=== PATIENT | male | born 1960 | race Caucasian/White ===

== ENCOUNTER 2019-11-08 04:03 | Emergency (ER) | payer OTHER, SELFPAY ==
--- NOTE | ~2019-11-08 | XR_ITS ---
EXAMINATION: XR shoulder RT min 2V DATE: 11/08/2019 04:39 INDICATION: Right shoulder pain. Fall. TECHNIQUE: 4 views of right shoulder were obtained. COMPARISON: None. FINDINGS: Bone alignment is normal. No fracture. There is mild osteoarthritis of glenohumeral joint a nd acromioclavicular joint. There is a 5 mm loose body in the axillary recess. There is mild calcific tendinitis of the rotator cuff. IMPRESSION: 1. Mild polyarticular osteoarthritis. 2. Loose body in the glenohumeral joint. 3. Mild calcific tendinitis of the rotator cuff. Reviewed, dictated and finalized at location A. [employer]
[2019-11-08 04:15] VITALS: BP 166/94; PULSE 81; RESP 20; TEMP 36.6; O2SAT 98
--- NOTE | 2019-11-08 04:19 | ED.UPPEXIN ---
HPI - Extremity Injury (Upper) General Chief Complaint: Extremity Injury, Upper Stated Complaint: Right shoulder Injury Time Seen by Provider: 11/08/19 04:19 Source: patient Mode of arrival: ambulatory Limitations: no limitations History of Present Illness HPI narrative: 58-year-old man who has a history of a prior right rotator cuff repair comes in today complaining of right shoulder pain and inability to raise his right arm after he fell in the door this morning and injured his shoulder. He denies any numbness, tingling or weakness. He is concerned about a clavicle fracture. He took some of his 's Vicodin prior to arrival. complaint: injury to: right and shoulder Other injuries: none Place: home Severity: moderate Relieving factors: immobilization Exacerbating factors: movement of extremity Context: fall Associated symptoms: denies other symptoms Treatments prior to arrival: other ( Vicodin) Related Data Allergies Allergy/AdvReac Type Severity Reaction Status Date / Time No Known Allergies Allergy Verified 11/08/19 04:13 Review of Systems Constitutional: Constitutional: Denies chills, Denies fever(s) and Denies weakness Eyes: Eyes: Denies change in vision and Denies photophobia ENT: Denies dysphagia, Denies nasal congestion and Denies sore throat Cardiovascular: Cardiovascular: Denies chest pain and Denies radiating jaw, neck or arm pain Respiratory: Respiratory: Denies cough, Denies dyspnea and Denies wheezing Gastrointestinal: Gastrointestinal: Denies abdominal pain, Denies nausea and Denies vomiting Musculoskeletal: Musculoskeletal: Reports as per HPI, Denies myalgias, Reports arthralgias, Reports joint swelling and Denies muscle cramps Integumentary/Breasts: Skin/Breast: Denies pruritus, Denies erythema and Denies rash Neurologic: Denies vertigo, Denies dizziness and Denies syncope Psychiatric: Psychiatric: Denies anxiety and Denies depression Endocrine: Endocrine: Denies polydipsia and Denies polyuria Hematologic/Lymphatic: Hematologic/Lymphatic: Denies easy bleeding and Denies easy bruising Allergic/Immunologic: Allergic/Immunologic: Denies lip swelling and Denies wheezing PMFSH Surgical History Surgical History (Updated 11/08/19 @ 05:03 by Andrea Morse MD) S/P rotator cuff surgery Social History Social History (Updated 11/08/19 @ 04:14 by Adelia Ray RN) Smoking packs per day: 1 Smoking cigarettes per day: 20.0 Smoking status: Current every day smoker Alcohol intake: current Drinks per week: 1 Substance use: never Living arrangements: with family Exam Const: General: healthy appearing and alert Orientation/consciousness: patient oriented x3 Other: mild acute distress. Eyes: Conjunctivae: conjunctivae normal Pupils: Equal, round and reactive pupils present EOM: EOMs intact bilaterally Resp: Effort & Inspection: normal respiratory effort and not labored Auscultation: no rales, no rhonchi and wheezes ( Late expiratory wheezes throughout. No prolonged expiratory phase.) Cardio: Rate: regular rate Rhythm: regular rhythm Heart sounds: no murmurs Skin: General skin exam: normal color, no jaundice and no pallor Rashes: no rashes Neuro: General: patient oriented x3, moves all extremities, no focal motor deficits and CN's II-XI intact bilaterally Extrem: General: no clubbing, cyanosis or edema Other: tenderness over the anterior proximal humerus on the right or there is tenderness over the distal clavicle and the acromion. There is no scapular tenderness posteriorly. Very limited flexion and abduction. Psych: Appearance: grossly normal and well kempt Mental Status: mental status grossly normal Affect: normal affect Attitude: cooperative Thought content: Yes Normal thought content present Course Vital Signs Vital signs: Vital Signs Temperature 36.6 C 11/08/19 04:15 Pulse Rate 81 11/08/19 04:15 Respiratory Rate 20
[2019-11-08] MEDS: KETOROLAC (*BKC) 60 MG/2 ML VIAL IM (04:30)
[2019-11-08 05:25] VITALS: BP 132/88; PULSE 82; RESP 20; O2SAT 98
== END 2019-11-08 05:31 | disposition home or self-care (01) ==
PROVIDERS: Emergency Provider Emergency Medicine
DX: S43.491A Other sprain of right shoulder joint, initial encounter (principal)
CPT/HCPCS: 73030; 96372; 99283; A4565; J1885